=== PATIENT | male | born 1985 ===

== ENCOUNTER 2019-07-17 21:23 | Emergency (ER) | payer MEDICAID ==
[~2019-07-17] VITALS: Ht 175.3 cm; Wt 61.4 kg
[2019-07-17 22:49] VITALS: BP 133/75
== END 2019-07-18 01:06 | disposition home or self-care (01) ==
LOC: EMS 21:28
DX: S00.211A Abrasion of right eyelid and periocular area, initial encounter (principal); S80.212A Abrasion, left knee, initial encounter; S80.211A Abrasion, right knee, initial encounter; F10.129 Alcohol abuse with intoxication, unspecified; Y90.9 Presence of alcohol in blood, level not specified; Y35.813A Legal intervention involving manhandling, suspect injured, initial encounter; Y93.89 Activity, other specified; Y92.89 Other specified places as the place of occurrence of the external cause; Y99.8 Other external cause status